=== PATIENT | female | born 1950 | race Caucasian/White ===

== ENCOUNTER → 2017-05-31 | Outpatient (CLI) | payer MEDICARE, BC ==
[2012-05-27 23:43] VITALS: BP 138/79
[~2017-05-31] MED LIST: HCTZ 25MG25 MG PO; PREMPRO 0.625/21 TAB PO; SINGULAIR4 MG PO
== END ==
LOC: MAMMO 09:46
DX: Z12.31 Encounter for screening mammogram for malignant neoplasm of breast (principal)
CPT/HCPCS: G0202

== ENCOUNTER → 2018-06-18 | Outpatient (CLI) | payer MEDICARE, BC ==
[2012-05-27 23:43] VITALS: BP 138/79
== END ==
LOC: MAMMO 09:28
DX: Z12.31 Encounter for screening mammogram for malignant neoplasm of breast (principal)

== ENCOUNTER → 2018-08-19 | Outpatient (CLI) | payer MEDICARE, BC ==
[2012-05-27 23:43] VITALS: BP 138/79
== END ==
LOC: VAS 16:22 → RAD 16:45
DX: I08.1 Rheumatic disorders of both mitral and tricuspid valves (principal)

== ENCOUNTER → 2019-01-27 | Day surgery (SDC) | payer MEDICARE, BC ==
[2012-05-27 23:43] VITALS: BP 138/79
== END ==
LOC: MSO 09:07
DX: Z12.11 Encounter for screening for malignant neoplasm of colon (principal); K57.30 Diverticulosis of large intestine without perforation or abscess without bleeding; I10 Essential (primary) hypertension; K21.9 Gastro-esophageal reflux disease without esophagitis; Z86.010 Personal history of colon polyps; Z83.71 Family history of colonic polyps; Z88.0 Allergy status to penicillin
CPT/HCPCS: 00812; J2704; J3010; J7120

== ENCOUNTER → 2020-02-06 | Outpatient (CLI) | payer MEDICARE, BC ==
[2012-05-27 23:43] VITALS: BP 138/79
== END ==
LOC: LAB 08:50
DX: Z01.818 Encounter for other preprocedural examination (principal); Z20.828 Contact with and (suspected) exposure to other viral communicable diseases

== ENCOUNTER → 2020-02-11 | Day surgery (SDC) | payer MEDICARE, BC ==
[2012-05-27 23:43] VITALS: BP 138/79
== END ==
LOC: MSO 08:38
DX: H25.812 Combined forms of age-related cataract, left eye (principal); D64.9 Anemia, unspecified; I10 Essential (primary) hypertension; E78.00 Pure hypercholesterolemia, unspecified; R01.1 Cardiac murmur, unspecified; Z79.899 Other long term (current) drug therapy; Z88.0 Allergy status to penicillin
CPT/HCPCS: 00142; J0171; J2250; V2632

== ENCOUNTER → 2020-03-10 | Day surgery (SDC) | payer MEDICARE, BC ==
[2012-05-27 23:43] VITALS: BP 138/79
== END ==
LOC: MSO 09:40
DX: H25.811 Combined forms of age-related cataract, right eye (principal); E78.00 Pure hypercholesterolemia, unspecified; I10 Essential (primary) hypertension; D64.9 Anemia, unspecified; Z88.0 Allergy status to penicillin; Z20.828 Contact with and (suspected) exposure to other viral communicable diseases
CPT/HCPCS: 00142; J0171; J2250; V2632

== ENCOUNTER 2020-11-06 12:05 | Observation (INO) | payer MEDICARE, BC ==
[2020-11-06] VITALS (14 sets, daily range): BP systolic 111–141; BP diastolic 52–77
[2020-11-06 12:43] LABS: EOS # 0.1 (0.04-0.40); EOS % 1.4 % (1.0-5.0); LYMPH# 0.8 (1.50-4.00); MEAN CELL VOLUME 81 fl (78-100); MEAN PLATELET VOLUME 9.8 fl (7.4-10.4); MONO # 0.4 (0.20-0.80); NEU # 4.5 (1.40-6.50); PLATELET COUNT 361 K/mm3 (130-400); RED BLOOD COUNT 2.77 M/mm3 (4.10-5.30); WHITE BLOOD COUNT 5.8 K/mm3 (4.8-10.8)
[2020-11-06 12:48] LABS: HEMATOCRIT 22.3 % (37.0-47.0); MEAN CORPUSCULAR HEMOGLOBIN 22 pg (27-31); MEAN CORPUSCULAR HGB CONC 27 g/dL (33-37); RED CELL DISTRIBUTION WIDTH 19.6 % (11.5-14.5)
[2020-11-06 12:52] LABS: ALBUMIN 3.7 g/dL (3.4-4.8); POTASSIUM 3.4 mmol/L (3.5-5.1); SODIUM 139 mmol/L (136-145)
[2020-11-06 12:53] LABS: CALCIUM 8.9 mg/dL (8.3-10.5)
[2020-11-06 12:55] LABS: GLUCOSE 186 mg/dL (65-105); TOTAL PROTEIN 6.5 g/dL (6.2-8.1)
[2020-11-06 12:56] LABS: CARBON DIOXIDE 22 mmol/L (23-31); TOTAL BILIRUBIN 0.3 mg/dL (0.2-1.2)
[2020-11-06 13:00] LABS: AST-SGOT 14 U/L (5-34)
[2020-11-06 13:01] LABS: ALT/SGPT 12 U/L (0-55)
[2020-11-06 13:07] LABS: TROPONIN-I < 0.03 ng/mL (<0.030)
[2020-11-06 13:15] LABS: D-DIMER 2.32 mg/L FEU (0.15-0.50)
[2020-11-06] MEDS ORDERED: ATORVASTATIN CA10 MG PO (13:17)
[2020-11-06] MEDS ORDERED: FLONASE ALLERG9.9 ML NS (13:17)
[2020-11-06] MEDS ORDERED: ALLERCLEAR10 MG PO (13:18)
[2020-11-06] MEDS ORDERED: SYMBICORT1 AE3 IH (13:18)
[2020-11-06] MEDS ORDERED: MULTIPLE VITAMI1 T25 PO (13:19)
[2020-11-06 17:35] LABS: URINE APPEARANCE CLEAR; URINE BILIRUBIN NEGATIVE (NEGATIVE); URINE BLOOD NEGATIVE (NEGATIVE); URINE COLOR YELLOW; URINE GLUCOSE NEGATIVE (NEGATIVE); URINE KETONE NEGATIVE (NEGATIVE); URINE LEUKOCYTE ESTERASE TRACE (NEGATIVE); URINE NITRATE POSITIVE (NEGATIVE); URINE PROTEIN(semi-quant) TRACE mg/dL (NEGATIVE); URINE UROBILINOGEN NORMAL (NORMAL)
[2020-11-07 05:50] VITALS: BP 109/63
[2020-11-07 09:06] LABS: HEMATOCRIT 30.3 % (37.0-47.0); HEMOGLOBIN 8.6 g/dL (12.5-16.0)
[2020-11-07] MEDS ORDERED: PANTOPRAZOLE SO40 MG PO (09:58)
[2020-11-07 10:17] VITALS: BP 126/74
== END 2020-11-07 10:19 | disposition home or self-care (01) ==
LOC: ED 12:05 → MED/SURG 14:44
PROVIDERS: ADMIT Family Medicine
DX: D50.0 Iron deficiency anemia secondary to blood loss (chronic) (principal); R55 Syncope and collapse; R10.13 Epigastric pain; I10 Essential (primary) hypertension; E78.5 Hyperlipidemia, unspecified; J45.909 Unspecified asthma, uncomplicated; R09.81 Nasal congestion; Z80.0 Family history of malignant neoplasm of digestive organs; Z79.899 Other long term (current) drug therapy; Z79.51 Long term (current) use of inhaled steroids
CPT/HCPCS: G0378; J3490

== ENCOUNTER → 2020-11-22 | Day surgery (SDC) | payer MEDICARE, BC ==
[2020-11-07 10:17] VITALS: BP 126/74
[~2020-11-22] MED LIST changes: +ALLERCLEAR10 MG PO; +ATORVASTATIN CA10 MG PO; +FLONASE ALLERG9.9 ML NS; +MULTIPLE VITAMI1 T25 PO; +PANTOPRAZOLE SO40 MG PO; +SYMBICORT1 AE3 IH
== END ==
LOC: MSO 08:33
DX: K25.9 Gastric ulcer, unspecified as acute or chronic, without hemorrhage or perforation (principal); D64.9 Anemia, unspecified; Z80.0 Family history of malignant neoplasm of digestive organs; Z86.010 Personal history of colon polyps; I10 Essential (primary) hypertension; J30.9 Allergic rhinitis, unspecified; Z79.899 Other long term (current) drug therapy
CPT/HCPCS: 00813; J2704; J7120

== ENCOUNTER → 2021-01-04 | Outpatient (CLI) | payer MEDICARE, BC | LOC: MAMMO 09:05 | DX: Z12.31 Encounter for screening mammogram for malignant neoplasm of breast (principal) ==

== ENCOUNTER → 2021-12-29 | Outpatient (CLI) | payer MEDICARE, BC | LOC: MAMMO 10:15 | DX: Z12.31 Encounter for screening mammogram for malignant neoplasm of breast (principal) ==

== ENCOUNTER → 2022-03-31 | Outpatient (CLI) | payer MEDICARE, BC | LOC: RAD 07:52 | DX: R79.89 Other specified abnormal findings of blood chemistry (principal) ==

== ENCOUNTER → 2023-09-25 | Outpatient (CLI) | payer MEDICARE, BC ==
[~2023-09-25] MED LIST changes: +CEPHALEXIN500 M1 PO; +FLUOXETINE HCL20 MG PO; +GOOD NEIGHBOR P10 M3 PO; +MECLIZINE PO; +PANTOPRAZOLE SO20 M1 PO; +POTASSIUM CHLO10 ME7 PO; +SERTRALINE50 MG PO; +ZYRTEC10 M3 PO
== END ==
LOC: RAD 13:22
DX: M17.12 Unilateral primary osteoarthritis, left knee (principal)

== ENCOUNTER → 2024-01-22 | Outpatient (CLI) | payer MEDICARE, BC | LOC: MAMMO 13:23 | DX: Z12.31 Encounter for screening mammogram for malignant neoplasm of breast (principal) ==

== ENCOUNTER → 2024-06-05 | Outpatient (CLI) | payer MEDICARE, BC | LOC: RAD 15:52 | DX: M19.041 Primary osteoarthritis, right hand (principal) ==